=== PATIENT | female | born 1990 | race Caucasian/White ===

== ENCOUNTER → 2023-10-18 | Outpatient (CLI) | payer OTHER ==
--- NOTE | 2023-10-18 19:41 | FL ---
EXAMINATION TYPE: FL hysterosalpingography DATE OF EXAM: 10/18/2023 COMPARISON: None HISTORY: Primary Infertility TECHNIQUE: Procedure was explained to the patient, the risks, complications and benefits. All questio ns are answered. Written and verbal informed consent was obtained. Patient was placed on the fluoroscopy table in the supine position. The speculum was inserted and the vaginal vault cleansed with Betadine. Under observation the catheter was placed through the cervical os without resistance. The balloon was inflated without difficulty or discomfort to the patient. Und er fluoroscopic observation contrast was administered. Contrast was injected. The balloon was deflate d and with additional contrast withdrawn. Speculum was withdrawn. Discharge instructions were discuss ed with the patient. Patient tolerated procedure well. FINDINGS: There is prompt fill of the uterus. There is prompt filling and spill on the left fallopian tube. There is filling of the right fallopian tube with free spill on the right. No intraluminal or extramural defects identified. No loculated contrast collections are evident. IMPRESSION: 1. Normal hysterosalpingogram
== END | disposition home or self-care (01) ==
LOC: RADUSWWP 13:17
PROVIDERS: ATTEND Obstetrics & Gynecology Obstetrics
DX: N97.9 Female infertility, unspecified (principal)
CPT/HCPCS: 58340; 74740; Q9967